=== PATIENT | female | born 1990 | race Two or more races ===

== ENCOUNTER 2020-11-05 18:22 | Observation (INO) | payer BC, MEDICAID ==
[2020-11-05] MEDS ORDERED: PREN-96 PO (19:56)
== END 2020-11-05 20:08 | disposition home or self-care (01) ==
LOC: LDRP 18:22
PROVIDERS: ADMIT Obstetrics & Gynecology Obstetrics; ATTEND Obstetrics & Gynecology Obstetrics
DX: O26.893 Other specified pregnancy related conditions, third trimester (principal); R19.7 Diarrhea, unspecified; R10.2 Pelvic and perineal pain; Z3A.28 28 weeks gestation of pregnancy
CPT/HCPCS: 59025; 81002; 94760; G0378; G0379

== ENCOUNTER 2020-12-12 15:15 | Observation (INO) | payer BC, MEDICAID ==
[~2020-12-12 15:15] MED LIST: PREN-96 PO
== END 2020-12-12 16:36 | disposition home or self-care (01) ==
LOC: LDRP 15:15
PROVIDERS: ADMIT Obstetrics & Gynecology; ATTEND Obstetrics & Gynecology
DX: O42.913 Preterm premature rupture of membranes, unspecified as to length of time between rupture and onset of labor, third trimester (principal); O26.893 Other specified pregnancy related conditions, third trimester; N89.8 Other specified noninflammatory disorders of vagina; O99.891 Other specified diseases and conditions complicating pregnancy; M54.9 Dorsalgia, unspecified; Z3A.33 33 weeks gestation of pregnancy
CPT/HCPCS: 59025; 81002; 84112; 94760; G0378; G0379; Q0114

== ENCOUNTER 2021-01-25 20:05 | Observation (INO) | payer BC, MEDICAID ==
[~2021-01-25] VITALS: Ht 167.6 cm; Wt 59.4 kg
== END 2021-01-25 22:16 | disposition home or self-care (01) ==
LOC: LDRP 20:05
PROVIDERS: ADMIT Obstetrics & Gynecology; ATTEND Obstetrics & Gynecology
DX: O48.0 Post-term pregnancy (principal); Z3A.40 40 weeks gestation of pregnancy
CPT/HCPCS: 59025; 76818; 81002; G0378; G0379

== ENCOUNTER 2021-01-27 13:23 | Inpatient (IN) | payer BC, MEDICAID ==
[~2021-01-27] VITALS: Ht 152.4 cm; Wt 60.8 kg
[2021-01-27] MEDS ORDERED: BUTORPHANOL TARTRATE 2 MG/1 ML VIAL IV PRN ×2 (15:15)
[2021-01-27] MEDS ORDERED: LIDOCAINE 2%HCL (LOCAL ANESTH.) INJ 20ML MDV IJ PRN (15:15)
[2021-01-27] MEDS ORDERED: PROMETHAZINE HCL 25 MG/ML 1ML IV PRN (15:15)
[2021-01-27] MEDS ORDERED: PHISODERM TOP SOLN 240ML BTL TOP PRN (15:15)
[2021-01-27] MEDS ORDERED: DERMOPLAST 60ML BOTTLE TOP PRN (15:15)
[2021-01-27] MEDS ORDERED: PENICILLIN G POT 5MIL/D5 50ML 50 ML IV ONE (15:45)
[2021-01-27] MEDS: LACTATED RINGER'S 1,000 ML IV SCH ×2 (16:21→17:50)
[2021-01-27 16:31] LABS: Basophils # (auto) 0 10 ^3/uL (0-0.2); Eosinophils # (auto) 0.1 10 ^3/uL (0-0.8); Lymphocytes # (auto) 1.5 10 ^3/uL (0.4-5.4)
[2021-01-27 16:34] LABS: Basophils % (auto) 0.3 % (0.0-2.0); Eosinophils % (auto) 1.3 % (0.0-7.0); Hemoglobin 11.3 g/dL (12.2-16.2); Lymphocytes % (auto) 15.3 % (10.0-50.0); Mean Corpuscular Hemoglobin 27.1 pg (28.0-32.0); Mean Corpuscular Hgb Conc. 33.3 g/dL (32.0-36.0); Mean Corpuscular Volume 81.4 fL (80.0-100.0); Monocytes # (auto) 0.5 10 ^3/uL (0-1.3); Monocytes % (auto) 5.5 % (0.0-12.0); Neutrophils # (auto) 7.7 10 ^3/uL (1.6-8.6); Neutrophils % (auto) 77.6 % (37.0-80.0); Red Blood Cells 4.17 10^6/uL (4.0-5.20); Red Cell Distribution Width 15.4 % (11.8-14.3)
[2021-01-27 16:38] LABS: Urine Bacteria FEW /hpf (None Seen); Urine Blood Negative /uL (Negative); Urine Mucus FEW (None Seen); Urine Specific Gravity 1.027 (1.001-1.035); Urine WBC 4 /hpf (0 - 5)
[2021-01-27 16:41] LABS: Albumin 2.9 g/dL (3.4-5.0); Calcium 8.2 mg/dL (8.5-10.1); Potassium 3.9 mmol/L (3.5-5.1)
[2021-01-27 16:42] LABS: Alcohol, Urine < 3.0 mg/dL (0-10); Amphetamine Screen, Urine NEGATIVE (NEGATIVE); Barbiturate Scree,Urine NEGATIVE (NEGATIVE); Benzodiazephine Screen, Urine NEGATIVE (NEGATIVE); Cannabinoid Screen, Urine NEGATIVE (NEGATIVE); Cocaine Screen, Urine NEGATIVE (NEGATIVE); Opiate Scree,Urine NEGATIVE (NEGATIVE); Phencyclidine Screen, Urine NEGATIVE (NEGATIVE)
[2021-01-27 16:46] LABS: Bilirubin, Total 0.3 mg/dL (0.2-1.0); Total Protein 6.6 g/dL (6.4-8.2)
[2021-01-27 17:17] LABS: INR 0.92 (0.9-1.15); Partial Thromboplastin Time 30.9 sec (23.6-33.0)
[2021-01-27] MEDS: PENICILLIN G POTASSIUM 2,500,000 UNITS in D5W 5% 50 ML IV SCH (19:55)
[2021-01-27] MEDS ORDERED: LACT. RINGERS/OXYTOCIN 20UNITS 1,000 ML IV SCH (21:30)
[2021-01-27] MEDS ORDERED: LACT. RINGERS/OXYTOCIN 20UNITS 500 ML IV ONE ×2 (21:30→22:00)
[2021-01-27] MEDS ORDERED: ceFAZolin 1GM/50ML 50 ML IV SCH (22:00)
[2021-01-27] MEDS ORDERED: LIDOCAINE HCL 2 %PF INJ 10ML AMP IJ ONE (23:15)
[2021-01-27] MEDS ORDERED: ROPIVACAINE HCL 200 ML EPI SCH (23:15)
[2021-01-27] MEDS ORDERED: ePHEDrine SULFATE 50 MG/ML AMP IV PRN (23:15)
[2021-01-27] MEDS ORDERED: LACTATED RINGER'S 500 ML IV ONE (23:15)
[2021-01-27] MEDS ORDERED: NALOXONE HCL 0.4 MG/ML VIAL IV PRN (23:15)
[2021-01-28] VITALS (8 sets, daily range): BP systolic 97–120; BP diastolic 51–82
[2021-01-28] MEDS ORDERED: ROPIVACAINE HCL 200 ML EPI SCH
[2021-01-28] MEDS: PENICILLIN G POTASSIUM 2,500,000 UNITS in D5W 5% 50 ML IV SCH ×2 (01:11→03:45)
[2021-01-28] MEDS ORDERED: IBUPROFEN 600 MG TAB PO PRN (05:30)
[2021-01-28] MEDS ORDERED: ONDANSETRON ODT 4 MG TAB PO PRN (05:30)
[2021-01-28] MEDS ORDERED: IBUPROFEN 800 MG TAB PO SCH (06:00)
[2021-01-28] MEDS: WITCH HAZEL-GLYCERIN PAD TOP PRN (07:08)
[2021-01-28] MEDS: ACETAMINOPHEN 325 MG TAB PO PRN ×2 (10:51→20:23)
[2021-01-28] MEDS: IBUPROFEN 600 MG TAB PO SCH ×2 (16:36→23:34)
[2021-01-28] MEDS ORDERED: DOCUSATE SOD 100 MG CAP PO SCH (22:00)
[2021-01-29 02:35] VITALS: BP 117/69
[2021-01-29 06:03] LABS: RPR Non Reactive (Non Reactive)
[2021-01-29] MEDS: IBUPROFEN 600 MG TAB PO SCH (06:04)
[2021-01-29 07:10] VITALS: BP 115/61
[2021-01-29] MEDS: WITCH HAZEL-GLYCERIN PAD TOP PRN (08:46)
== END 2021-01-29 10:11 | disposition home or self-care (01) | DRG 806 ==
LOC: LDRP 13:23 → OBSVTOIN 15:13 → LDRP 17:34
PROVIDERS: ADMIT Obstetrics & Gynecology; ATTEND Obstetrics & Gynecology
PROC: 10E0XZZ Delivery of Products of Conception, External Approach (ICD-10-PCS; principal; 2021-01-28)
PROC: 3E0R3BZ Introduction of Anesthetic Agent into Spinal Canal, Percutaneous Approach (ICD-10-PCS; 2021-01-28)
PROC: 00HU33Z Insertion of Infusion Device into Spinal Canal, Percutaneous Approach (ICD-10-PCS; 2021-01-28)
DX: O42.92 Full-term premature rupture of membranes, unspecified as to length of time between rupture and onset of labor (principal); O41.03X0 Oligohydramnios, third trimester, not applicable or unspecified; Z37.0 Single live birth; O77.0 Labor and delivery complicated by meconium in amniotic fluid; Z20.822 Contact with and (suspected) exposure to COVID-19; Z3A.40 40 weeks gestation of pregnancy
CPT/HCPCS: 36415; 59025; 59409; 62282; 76818; 80053; 80307; 81001; 81002; 84112; 85025; 85610; 85730; 86592; 86850; 86900; 86901; 87426; 94760; 94762; 96360; 96361; 96365; 96366; 96374; G0378; J2540; J2590; J7060